=== PATIENT | female | born 1995 ===

== ENCOUNTER 2021-05-30 07:37 | Inpatient (IN) | payer SELFPAY ==
[2021-05-30] MEDS ORDERED: FAMOTIDINE 20 MG/2 ML INJ IV SCH (08:12)
[2021-05-30] MEDS ORDERED: METOCLOPRAMIDE 10 MG/2 ML INJ IV SCH (08:12)
[2021-05-30] MEDS ORDERED: LACTATED RINGERS 2,000 ML ONE (08:16)
[2021-05-30] MEDS ORDERED: OXYTOCIN DRIP 30 UNITS/500 ML BAG IV SCH (09:00)
[2021-05-30] MEDS ORDERED: PHENYLEPHRINE 10 MG/1 ML INJ SDV ONE (09:38)
[2021-05-30] MEDS ORDERED: ONDANSETRON 4 MG/2 ML INJ ONE (09:38)
[2021-05-30] MEDS ORDERED: SODIUM CHLORIDE 0.9% 100 ML ONE (09:39)
[2021-05-30] MEDS ORDERED: dexAMETHasone 20 MG/5 ML VIAL ONE (09:39)
[2021-05-30] MEDS ORDERED: ceFAZolin/Water 2 GM/20 ML 2 GM/20 ML SYRINGE IV ONE (09:57)
[2021-05-30] MEDS ORDERED: BICITRA ORAL LIQD 30ML PO ONE (10:00)
--- NOTE | 2021-05-30 10:00 | Anesthesia Consultation ---
Anesthesia Consult and Med Hx Date of service: 05/30/21 - Airway Anesthetic Teeth Evaluation: Good ROM Head & Neck: Adequate Mental/Hyoid Distance: Adequate Mallampati Class: Class II Intubation Access Assessment: Good - Pulmonary Exam CTA: Yes - Cardiac Exam Cardiac Exam: RRR - Pre-Operative Health Status ASA Pre-Surgery Classification: ASA2 Proposed Anesthetic Plan: Spinal - Pulmonary Hx Asthma: No COPD: No Hx Pneumonia: No - Cardiovascular System Hx Hypertension: No - Central Nervous System Hx Seizures: No Hx Psychiatric Problems: No - Endocrine Hx Renal Disease: No Hx End Stage Renal Disease: No Hx Hypothyroidism: No Hx Hyperthyroidism: No - Hematic Hx Anemia: No Hx Sickle Cell Disease: No - Other Systems Hx Alcohol Use: No
--- NOTE | 2021-05-30 10:00 | Anesthesia Day of Surgery ---
Anesthesia Day of Surgery - Day of Surgery Patient Examined: Yes Patient H&P Reviewed: Yes Patient is NPO: Yes
--- NOTE | 2021-05-30 10:10 | History and Physical Report ---
History of Present Illness Date of examination: 05/30/21 Date of admission: 05/30/21 07:37 Chief complaint: elective repeat section History of present illness: 26-year-old -0-0-1 at 40 weeks with EDC 05/30/2021 presents for elective repeat section. care at [place]: Limited care with 5 total visits Previous x1 in [place] for emergency indication second to bleeding. Labs: O+, antibody screen negative Hemoglobin 12.0 Pap negative for intraepithelial lesion or malignancy Rubella immune VDRL negative HBsAg negative HIV negative GC chlamydia negative MSAFP negative GCT 126 Past History Past Surgical History: section Family/Genetic History: none Social history: no significant social history - Obstetrical History Expected Date of Delivery: 05/30/21 Actual Gestation: 40 Week(s) 0 Day(s) : 2 Para: 1 Medications and Allergies Allergies Allergy/AdvReac Type Severity Reaction Status Date / Time No Known Allergies Allergy Unverified 05/30/21 08:11 Active Meds: Active Medications Famotidine (Famotidine 20 Mg/2 Ml Inj) 20 mg IV ONCE SACHA Last Admin: 05/30/21 10:01 Dose: 20 mg Documented by: Lactated Ringer's (Lactated Ringers) 1,000 mls @ 2,250 mls/hr IV PREOP SACHA Stop: 05/31/21 11:27 Oxytocin/Sodium Chloride (Pitocin/Ns 30 Unit/500ml) 30 units in 500 mls @ 0 mls/hr IV TITR SACHA; Protocol Metoclopramide HCl (Metoclopramide 10 Mg/2 Ml Inj) 10 mg IV ONCE SACHA Last Admin: 05/30/21 10:01 Dose: 10 mg Documented by: Review of Systems All systems: negative (No obstetrical complaints) - Vital Signs Vital signs: Vital Signs Pulse Pulse Ox 126 H 99 05/30/21 08:25 05/30/21 08:25 Temp Pulse Resp BP Pulse Ox 123 H 118/66 99 05/30/21 10:03 05/30/21 08:26 05/30/21 10:03 - Physical Exam Breasts: Positive: deferred Cardiovascular: Regular rate Lungs: Positive: Clear to auscultation Abdomen: Positive: normal appearance, soft, normal bowel sounds Genitourinary (Female): Positive: normal external genitalia, normal perenium Vulva: both: normal Vagina: Positive: normal moisture Uterus: Positive: enlarged Adnexa: both: normal Anus/Rectum: Positive: normal perianal skin Extremities: Positive: normal Deep Tendon Reflex Grade: Normal +2 - Obstetrical FHR: category 1 Cervical Dilatation: 0 Uterine Contraction Pattern: Absent Results All other labs normal. 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 Anesthesia notified informed consent obtained. Dex Peterson MD
[2021-05-30 10:29] LABS: Basophils % (Auto) 0.5 % (0.0-1.8); Eosinophils % (Auto) 0.6 % (0.0-4.3); Hematocrit 34.1 % (30.3-42.9); Hemoglobin 11.2 gm/dl (10.1-14.3); Lymphocytes # (Auto) 1.6 K/mm3 (1.2-5.4); Lymphocytes % (Auto) 21.5 % (13.4-35.0); Mean Corpuscular HGB Conc 33 % (30-34); Mean Corpuscular Volume 80 fl (79-97); Monocytes # (Auto) 0.5 K/mm3 (0.0-0.8); Red Blood Count 4.27 M/mm3 (3.65-5.03); Red Cell Distribution Width 15.3 % (13.2-15.2)
--- NOTE | 2021-05-30 10:31 | Procedure Note ---
OB Delivery Note - Delivery Date of Delivery: 05/30/21 Surgeon: DONNA ARZATE Estimated blood loss: other (750ml) - Section Postop diagnosis: same section procedure: repeat low transverse Disposition: PACU Complications: none Narrative: Preop diagnosis: IUP at 40.0 weeks, previous section x1 Postop diagnosis: Same Procedure: Repeat low transverse section Surgeon: Dr. Donna Arzate Anesthesia spinal Complications none EBL 750ml IV fluids 1000mL Urine output 200mL, clear Drains Rojas to gravity Findings: Viable male with weight 3870gms and 9/10, normal uterus tubes and ovaries bilaterally Procedure: Patient was consented in OB triage, taken to the operating room where she received excellent spinal anesthesia. She was then placed in the dorsal supine position with a leftward tilt. The abdomen was prepped and draped in a sterile fashion, and a timeout was verified. Adequate anesthesia was confirmed prior to the skin incision. A Pfannenstiel skin incision was made with a scalpel taken down to the underlying structures and the fascia was incised in the midline. The incision was extended laterally with curved Davalos scissors, the superior and inferior aspects of the fascial incisions were grasped with Erica clamps and the rectus muscles dissected sharply. The abdomen was entered bluntly in the midline carried down inferiorly with good visualization of the bladder. The vesicouterine peritoneum was tented with Indian forceps and incised in the midline with Metzenbaum scissors and the vesicouterine peritoneum taken down sharply. The uterine incision was then made sharply with a scalpel. The inferior and superior aspect of the uterine incisi ons were extended bluntly, the baby's head was delivered atraumatically. The remainder of the delivery was uncomplicated, no nuchal cord. The cord was clamped and cut and baby handed to waiting NICU team. An intact placenta with three-vessel cord delivered manually. The uterus was then cleared of all clots and debris and the uterus exteriorized. The uterine incision was closed in 2 layers of 0 vicryl with excellent hemostasis. The abdomen was then irrigated with warm normal saline and the uterus placed back into the abdomen atraumatically. A second look at the uterine incision assured hemostasis. The peritoneum was closed with 3-0 Vicryl, the rectus muscles approximated with 3-0 Vicryl, and the fascia closed with 0 Vicryl in the usual fashion. The subcuticular structures were closed with interrupted sutures of 3-0 Vicryl and the skin closed with 4-0 Monocryl. A pressure dressing was applied. All sponge needle and instrument counts were correct x2. There were no complications. Mom and baby stable to PACU. EBL 750 mL Dex Arzate MD
[2021-05-30] MEDS ORDERED: LACTATED RINGERS 1,000 ML IV SCH (11:00)
[2021-05-30 11:10] LABS: Platelet Count 261 K/mm3 (140-440)
[2021-05-30 11:11] LABS: Mean Platelet Volume 261 fl (6-12)
[2021-05-30] MEDS ORDERED: BUPIVACAINE/PF (0.25%) 2.5 MG/ML 30 ML VIAL INFILTRATI ONE (12:17)
[2021-05-30] MEDS ORDERED: LACTATED RINGERS 1,000 ML ONE (12:17)
[2021-05-30] MEDS ORDERED: NALOXONE 0.4 MG/1 ML INJ IV PRN (12:34)
[2021-05-30] MEDS ORDERED: MORPHINE 2 MG/1 ML INJ IV PRN (12:34)
[2021-05-30] MEDS ORDERED: ACETAMINOPHEN 325 MG TAB PO PRN (12:34)
[2021-05-30] MEDS ORDERED: MORPHINE 4 MG/1 ML INJ IV PRN (12:34)
[2021-05-30] MEDS ORDERED: SIMETHICONE 80 MG CHEW TAB PO PRN (12:34)
[2021-05-30] MEDS ORDERED: ONDANSETRON 4 MG/2 ML INJ IV PRN (12:34)
[2021-05-30] MEDS ORDERED: MAGNESIUM HYDROXIDE (MOM) ORAL LIQD UDC PO PRN (12:34)
[2021-05-30] MEDS ORDERED: KETOROLAC 30 MG/1 ML INJ IV PRN (12:34)
[2021-05-30] MEDS ORDERED: LANOLIN/ZINC/DIMETHICONE (LANSINOH) 7 GM TP PRN (12:34)
[2021-05-30] MEDS ORDERED: IBUPROFEN 600 MG TAB PO PRN (12:34)
[2021-05-30] MEDS ORDERED: WITCH HAZEL/ GLYCERIN PAD TP PRN (12:34)
--- NOTE | 2021-05-30 12:51 | Progress Note ---
Spinal Anesthesia Block - Spinal Anesthesia Block Start Time: 11:00 Stop Time: 11:05 Performed by:: AMBREEN ARMIJO Procedure: Sitting, sterile chlorahexadine 0.5% prep/drape, 1% lidocaine skin local, 25G spinal needle + introducer at L3-4, + CSF, - Heme, [1.5 ml 0.75% bupivacaine + 10 mcg dexmedetomidine] injected, drape removed, patient positioned supine with left uterine displacement, and spinal level verified to be adequate prior to surgery.
[2021-05-30] MEDS: KETOROLAC 30 MG/1 ML INJ IV PRN (18:11)
[2021-05-30] MEDS: HYDROcodone/ACETAMINOPHEN 5-325 MG TAB PO PRN (23:00)
[2021-05-31 00:47] LABS: Hematocrit 29.6 % (30.3-42.9); Hemoglobin 9.9 gm/dl (10.1-14.3)
[2021-05-31] MEDS: KETOROLAC 30 MG/1 ML INJ IV PRN ×2 (05:46)
[2021-05-31] MEDS ORDERED: TETANUS,DIPH,PERTUSS(ACELL) VACCINE 0.5 ML SYRINGE IM ONE (06:00)
--- NOTE | 2021-05-31 11:27 | Progress Note ---
Assessment and Plan - Patient Problems (1) S/P Current Visit: Yes Status: Acute Plan to address problem: POD1 Status post repeat . Patient doing well meeting most of goals. Flatus pending --Continue to monitor incision given bleeding at the incision. --Anticipate discharge and 48 to 72 hours Subjective - Subjective Date of service: 05/31/21 Principal diagnosis: POD1 s/p rLTCS Interval history: Patient ports that she is feeling overall well. Has voided. Ambulated. Tolerating liquid p.o. Has not had flatus yet. Baby doing well in the room. Breast and bottlefeeding. Patient reports: appetite normal, voiding normally, pain well controlled, ambulating normally : doing well Objective - Vital Signs Latest vital signs: Vital Signs Temp Pulse Resp BP BP Pulse Ox Pulse Ox 05/31/21 08:30 97.9 F 84 18 101/60 05/31/21 08:00 98 05/31/21 05:46 18 05/31/21 04:45 98.3 F 88 18 102/68 100 05/31/21 01:35 98.2 F 76 18 112/76 99 05/31/21 00:30 18 05/31/21 00:00 18 05/30/21 23:00 18 05/30/21 20:38 98.2 F 90 20 102/59 99 05/30/21 20:00 98 05/30/21 15:50 98.3 F 94 H 18 99/55 98 05/30/21 14:15 98.5 F 94 H 20 109/74 97 97 05/30/21 13:40 98 H 16 124/64 99 05/30/21 13:25 97 H 16 119/80 99 05/30/21 13:10 94 H 16 120/66 99 05/30/21 12:55 100 H 18 119/80 99 05/30/21 12:50 98 H 16 120/78 99 05/30/21 12:43 97.5 F L 93 H 16 114/78 99 Intake and Output 05/30/21 05/31/21 05/31/21 23:59 07:59 15:59 Intake Total 480 360 Output Total 1700 1200 600 Balance -1220 -1200 -240 Intake: Oral 480 360 Output: Urine 1700 1200 600 Indwelling Catheter 1700 900 Void 300 600 Other: Total, Intake Amount 120 360 Total, Output Amount 1100 300 600 # Voids Void 1 - Exam Abdomen: Present: normal appearance, soft, normal bowel sounds Uterus: Present: firm Incision: Present: dressed (dressing removed by me, bloody Steri-Strips without any evidence of persistent bleeding at the incision. Steri-Strips remove and replaced by me. An ABD dressing added to the incision for pressure) - Labs Labs: Abnormal lab results 05/31/21 Range/Units 00:28 Hgb 9.9 L (10.1-14.3) gm/dl Hct 29.6 L (30.3-42.9) %
[2021-05-31] MEDS ORDERED: FLU VACC QUAD 2021-22(6MOS UP)/PF 60 MCG/0.5 ML SYRINGE IM ONE (12:00)
[2021-05-31] MEDS: IBUPROFEN 800 MG TAB PO PRN ×3 (12:52→23:17)
--- NOTE | 2021-05-31 17:30 | Post Anesthesia Evaluation ---
- Post Anesthesia Evaluation Patient Participated: Yes Airway Patent: Yes Stable Respiratory Function: Yes Nausea/Vomiting: No Temp > 96.8F: Yes Pain Manageable: Yes Adequeate Hydration: Yes Anesthesia Complications: No Block Receding Appropriately: Yes
[2021-06-01] MEDS: IBUPROFEN 800 MG TAB PO PRN ×2 (05:16→17:18)
[2021-06-01] MEDS ORDERED: FERROUS SULFATE 325 MG TAB PO SCH (10:00)
--- NOTE | 2021-06-01 12:53 | Progress Note ---
Subjective - Subjective Date of service: 06/01/21 Principal diagnosis: POD2 s/p rLTCS Interval history: meets discharge criteria fup 2 weeks postop course uneventful Dex Peterson MD Patient reports: appetite normal, voiding normally, pain well controlled, ambulating normally : doing well Objective - Vital Signs Latest vital signs: Vital Signs Temp Pulse Resp BP BP Pulse Ox Pulse Ox 06/01/21 08:06 97.9 F 107 H 18 101/64 97 06/01/21 06:15 99 06/01/21 05:21 98 06/01/21 05:16 16 06/01/21 00:28 98.8 F 96 H 20 104/65 100 06/01/21 00:15 100 05/31/21 23:17 18 100 05/31/21 19:40 99 05/31/21 16:10 98.2 F 95 H 18 97/46 Intake and Output 05/31/21 06/01/21 06/01/21 23:59 07:59 15:59 Intake Total 1040 240 360 Output Total 1000 Balance 40 240 360 Intake: Oral 800 360 Intake, Free Water 240 240 Output: Urine 1000 Void 1000 Other: Total, Intake Amount 320 240 Total, Output Amount 600 # Voids Void 1 2 - Exam Breasts: Present: deferred Cardiovascular: Present: Regular rate Lungs: Present: Clear to auscultation, Normal air movement Abdomen: Present: normal appearance, soft, normal bowel sounds Vulva: both: normal Uterus: Present: fundal height below umbilicus Extremities: Present: normal Deep Tendon Reflex Grade: Normal +2 Incision: Present: normal, dry, intact
--- NOTE | 2021-06-01 12:55 | Discharge Summary ---
Providers - Providers Date of Admission: 05/30/21 07:37 Date of discharge: 06/01/21 Attending physician: DONNA ARZATE MD Primary care physician: DONNA ARZATE MD Hospitalization Reason for admission: section Delivery: Procedure: repeat low transverse Other procedures: none Disposition: 30 STILL A PATIENT Plan - Discharge Medications Prescriptions: Ibuprofen [Motrin] 600 mg PO Q8H PRN #60 tablet PRN Reason: Pain oxyCODONE /ACETAMINOPHEN [Percocet 5/325] 1 tab PO Q6HR PRN #20 tablet PRN Reason: Pain - Provider Discharge Summary Additional instructions: [] Smoking cessation referral if applicable(refer to patient education folder for contact #) [] Refer to [facility] Booklet Call your doctor immediately for: * Fever > 100.5 * Heavy vaginal bleeding ( >1 pad per hour) * Severe persistent headache * Shortness of breath * Reddened, hot, painful area to leg or breast * Drainage or odor from incision. * Keep incision clean and dry at all times and follow doctor's instructions regarding bathing/showering - Follow up plan Follow up: DONNA ARZATE MD [Primary Care Provider] - 14 Days
[2021-06-01 17:07] VITALS: BP 101/59
[2021-06-01] MEDS: HYDROcodone/ACETAMINOPHEN 5-325 MG TAB PO PRN (17:17)
== END 2021-06-01 18:15 | disposition home or self-care (01) | DRG 788 ==
LOC: APU 07:37 → OB 14:24
PROVIDERS: ADMIT Obstetrics & Gynecology; ATTEND Obstetrics & Gynecology
PROC: 10D00Z1 Extraction of Products of Conception, Low, Open Approach (ICD-10-PCS; principal; 2021-05-30)
PROC: 3E0234Z Introduction of Serum, Toxoid and Vaccine into Muscle, Percutaneous Approach (ICD-10-PCS; 2021-05-31)
DX: O34.211 Maternal care for low transverse scar from previous cesarean delivery (principal); Z20.822 Contact with and (suspected) exposure to COVID-19; Z37.0 Single live birth; Z3A.40 40 weeks gestation of pregnancy; Z23 Encounter for immunization
CPT/HCPCS: 36415; 85014; 85018; 85025; 86850; 86900; 86901; 90471; 90715; G0378; J1100; J1885; J2370; J2405; J2765; J3490; J7120; U0003